=== PATIENT | female | born 1985 ===

== ENCOUNTER 2021-07-27 08:18 | Day surgery (SDC) | payer OTHER ==
[2021-07-27] MEDS ORDERED: LACTATED RINGERS 1,000 ML IV SCH (09:00)
[2021-07-27] MEDS ORDERED: MIDAZOLAM 2 MG/2 ML INJ IV NR (09:00)
[2021-07-27] MEDS ORDERED: fentaNYL 100 MCG/2 ML INJ ONE ×2 (09:01→11:12)
[2021-07-27] MEDS ORDERED: propofoL 200 MG/20 ML VIAL IV ONE (09:01)
--- NOTE | 2021-07-27 09:26 | Anesthesia Consultation ---
Anesthesia Consult and Med Hx Date of service: 07/27/21 - Central Nervous System Hx Psychiatric Problems: No - Other Systems Hx Cancer: No
[2021-07-27] MEDS ORDERED: ceFAZolin/Water 2 GM/20 ML 2 GM/20 ML SYRINGE IV ONE (09:28)
[2021-07-27] MEDS ORDERED: ONDANSETRON 4 MG/2 ML INJ IV PRN (09:30)
[2021-07-27] MEDS ORDERED: HYDROmorphone 1 MG/1 ML INJ IV PRN (09:30)
--- NOTE | 2021-07-27 09:37 | Anesthesia Consultation ---
Anesthesia Consult and Med Hx Date of service: 07/27/21 - Airway Anesthetic Teeth Evaluation: Good ROM Head & Neck: Adequate Mental/Hyoid Distance: Adequate Mallampati Class: Class I - Pulmonary Exam CTA: Yes - Cardiac Exam Cardiac Exam: RRR - Pre-Operative Health Status ASA Pre-Surgery Classification: ASA1 Proposed Anesthetic Plan: General - Pulmonary Hx Smoking: No - Cardiovascular System Hx Hypertension: No - Central Nervous System Hx Psychiatric Problems: No - Gastrointestinal Hx Gastroesophageal Reflux Disease: No - Other Systems Hx Cancer: No - Additional Comments Anesthesia Medical History Comments: Uterine fibroids,
--- NOTE | 2021-07-27 09:37 | Anesthesia Day of Surgery ---
Anesthesia Day of Surgery - Day of Surgery Patient Examined: Yes Patient H&P Reviewed: Yes Patient is NPO: Yes
[2021-07-27 10:17] LABS: Hematocrit 40.2 % (30.3-42.9); Hemoglobin 13.2 gm/dl (10.1-14.3); Mean Corpuscular HGB Conc 33 % (30-34); Mean Corpuscular Volume 90 fl (79-97); Platelet Count 243 K/mm3 (140-440); Red Blood Count 4.44 M/mm3 (3.65-5.03); Red Cell Distribution Width 13.9 % (13.2-15.2)
[2021-07-27] MEDS ORDERED: LIDOCAINE MPF (2%) 20 MG/1 ML VIAL 5 ML ONE (11:00)
[2021-07-27] MEDS ORDERED: ONDANSETRON 4 MG/2 ML INJ ONE (11:05)
[2021-07-27] MEDS ORDERED: ROCURONIUM 50 MG/5 ML INJ IV ONE ×2 (11:05→11:15)
[2021-07-27] MEDS ORDERED: dexAMETHasone 20 MG/5 ML VIAL ONE (11:05)
[2021-07-27] MEDS ORDERED: ceFAZolin/Water 2 GM/20 ML 2 GM/20 ML SYRINGE IV SCH (12:00)
[2021-07-27] MEDS ORDERED: KETOROLAC 30 MG/1 ML INJ ONE (12:25)
--- NOTE | 2021-07-27 12:49 | Operative Report ---
Operative Report Operative Report: Date of surgery: February 18, 2020 Admission diagnosis: Pelvic pain, dyspareunia, abnormal uterine bleeding, umbil ical hernia, infertility Postoperative diagnosis: The same, filmy peritoneal adhesions involving the sigmoid colon to the iliac fossa. Procedure: Diagnostic laparoscopic. Lysis of adhesions, D & C, Dye test for tubal patency, closure of small umbilical hernia. Surgeon: Garret Ocampo MD Anesthesia: General anesthesia Anesthesiologist: Ford YARBROUGH Estimated blood loss: Less than 5 cc Complications: None Findings: The fallopian tubes and ovaries were all grossly normal. Both fallopian tubes were patent, demonstrable with free flow of methylene blue dye through each fimbrial end. The fallopian tubes were further unencumbered and were freely mobile within the pelvis. The uterus was normal-sized with distortions from 2 small sized uterine fibroids consistent with ultrasound findings of 2 cm diameter each. The bowels, omentum, inferior dome of the diaphragm, the liver were all grossly normal. There were filmy peritoneal adhesions seen involving the sigmoid colon to the iliac fossa. The vermiform appendix was visualized and was grossly normal. The cecum was visualized and was also grossly normal. Procedure in details: Patient was taken to the operating room and in the straight supine position she was given general anesthesia. Patient was then put in the lithotomy position and prepped in the vulvar vagina and abdomen. The drapes were placed. A timeout was done. Wished to go ahead from the flume worker, an indwelling Beavers catheter was inserted. A sponge forceps was attached to the anterior lip of the cervix and was used to anchor the acorn cannula. At the navel a small stab incision was made in the supra-umbilical aspect. The Veress needle was carefully inserted into the peritoneal cavity, making sure to point the tip of this instruments towards the free hollow of the pelvis. The Veress needle was thereafter aspirated and no blood was drawn. The Veress needle was then flushed through with a small quantity of sterile normal saline without any resistance. About 3 and half liters of carbon dioxide was used to insufflate the peritoneal cavity. After removing the Veress needle, a 5 mm trocar with its port was inserted into the peritoneal cavity and again making sure to point the tip of this instrument into the free hollow of the pelvis. The laparoscope was subsequently confirmed successful access to the peritoneal cavity. 2 additional 5 mm ports was placed in the flanks. The endoscopic ligation was used to coagulate and divide the adhesions described above. There was no bleeding intraperitoneally. About 50 cc of diluted methylene blue was injected across the uterine cervix and the flow across the fimbrial ends of the tubes observed through the laparoscope. Hemostasis was very good. Careful inspection of the peritoneal cavity was once again done. The pneumoperitoneum was then expelled and all instruments were removed from the abdomen. By closing the fascial layer underneath the umbilical incision with #1 Vicryl, the hernial orifice was closed. The skin was closed subcuticularly with 2-0 Vicryl. The 2 stab incisions in the flanks were closed with a stitch, each, of 2-0 Vicryl. The cervical canal was gently dilated and sharp curettings obtained for histopathology. The endometrial surface was smooth. The patient tolerated the procedure well. There were no complications. Blood loss was estimated at less than 5 cc. All sponges and instruments were accounted for. The patient was transferred in satisfactory condition to the recovery room.
[2021-07-27] MEDS ORDERED: METHYLENE BLUE 50 MG/10 ML AMP IV ONE (13:04)
[2021-07-27] MEDS ORDERED: SODIUM CHLORIDE 0.9% IRR 1,500 ML BOTTLE IR ONE (13:06)
[2021-07-27] MEDS: HYDROmorphone 1 MG/1 ML INJ IV PRN ×2 (13:21→13:48)
[2021-07-27] MEDS ORDERED: ONDANSETRON 4 MG ODT TAB PO PRN (14:43)
[2021-07-27] MEDS ORDERED: HYDROcodone/ACETAMINOPHEN 5-325 MG TAB PO SCH (15:00)
--- NOTE | 2021-07-27 16:57 | Post Anesthesia Evaluation ---
- Post Anesthesia Evaluation Patient Participated: Yes Airway Patent: Yes Stable Respiratory Function: Yes Nausea/Vomiting: No Temp > 96.8F: Yes Pain Manageable: Yes Adequeate Hydration: Yes Anesthesia Complications: No Block Receding Appropriately: Not Applicable Patient on Ventilator: No
[2021-07-28 00:42] VITALS: BP 111/72
== END 2021-07-27 15:00 | disposition home or self-care (01) ==
LOC: OR 08:18
PROVIDERS: ATTEND Obstetrics & Gynecology
DX: N93.8 Other specified abnormal uterine and vaginal bleeding (principal); N94.10 Unspecified dyspareunia; R10.2 Pelvic and perineal pain; K42.9 Umbilical hernia without obstruction or gangrene; Z79.899 Other long term (current) drug therapy; Z98.890 Other specified postprocedural states
CPT/HCPCS: 36415; 58120; 58660; 81025; 85027; 88305; J0690; J1100; J1170; J1885; J2250; J2405; J2704; J3010; J7120; Q9968